=== PATIENT | male | born 1990 | race Caucasian/White ===

== ENCOUNTER 2020-01-23 20:14 | Emergency (ER) | payer OTHER ==
[~2020-01-23] VITALS: Ht 172.7 cm; Wt 86.4 kg
[2020-01-23] MEDS ORDERED: NALOXONE 2MG/2ML SYRINGE (J2310 PER 1MG) As Ordered ONE (20:29)
[2020-01-23] MEDS ORDERED: NALOXONE 2MG/2ML SYRINGE (J2310 PER 1MG) IV ONE (20:45)
[2020-01-23] MEDS ORDERED: NS 1,000 ML IV ONE (20:45)
[2020-01-23 21:15] LABS: BASO # 0.1 10^3/uL (0.0-0.2); BASO % 0.5 % (0.0-1.0); EOS # 0.2 10^3/uL (0.0-0.5); EOS % 2.4 % (0.0-3.0); HEMATOCRIT 42.1 % (42.0-52.0); HEMOGLOBIN 13.9 g/dl (13.5-17.5); LYMPH # 3.1 10^3/uL (1.5-5.0); LYMPH % 34.1 % (24.0-44.0); MEAN CORPUSCULAR HEMOGLOBIN 28.1 pg (27.0-33.0); MEAN CORPUSCULAR VOLUME 85.2 fl (80.0-96.0); MONO # 1.1 10^3/uL (0.0-0.8); MONO % 12.5 % (0.0-5.0); NEUTROPHILS # 4.6 10^3/uL (1.5-8.5); NEUTROPHILS % 50.3 % (36.0-66.0); PLATELET COUNT, AUTOMATED 309 10^3/uL (150-450); RED BLOOD COUNT 4.94 10^6/uL (4.30-6.10); WHITE BLOOD COUNT 9.1 10^3/uL (4.0-10.0)
[2020-01-23 21:48] LABS: ACETAMINOPHEN LEVEL < 2.0 UG/ML (10.0-30.0); ALBUMIN 3.9 GM/DL (3.2-5.2); ALT/SGPT 31 U/L (12-78); BILIRUBIN,DIRECT 0.1 MG/DL (0.0-0.2); BILIRUBIN,TOTAL 0.4 MG/DL (0.2-1.0); BLOOD UREA NITROGEN 15 MG/DL (7-18); CALCIUM LEVEL 8.8 MG/DL (8.5-10.1); CARBON DIOXIDE LEVEL 29 MEQ/L (21-32); CHLORIDE LEVEL 111 MEQ/L (98-107); CPK CREATINE PHOSPHOKINASE 633 U/L (39-308); CREATININE FOR GFR 1.03 MG/DL (0.70-1.30); ETHYL ALCOHOL (ETHANOL) < 0.003 % (0.000-0.010); GLOMERULAR FILTRATION RATE > 60.0 (>60); GLUCOSE, FASTING 79 MG/DL (70-100); POTASSIUM SERUM 4.2 MEQ/L (3.5-5.1); SALICYLATE LEVEL < 1.7 MG/DL (5.0-30.0); SODIUM LEVEL 143 MEQ/L (136-145); TOTAL PROTEIN 7.2 GM/DL (6.4-8.2)
--- NOTE | 2020-01-23 21:53 | REPVR ---
PROCEDURE INFORMATION: Exam: CT Head Without Contrast Exam date and time: 01/23/2020 9:16 PM Age: 29 years old Clinical indication: Other: Overdose; Additional info: Drug overdose TECHNIQUE: Imaging protocol: Computed tomography of the head without contrast. Radiation optimization: All CT scans at this facility use at least one of these dose optimization techniques: automated exposure control; mA and/or kV adjustment per patient size (includes targeted exams where dose is matched to clinical indication); or iterative reconstruction. COMPARISON: CT Head without contrast 12/09/2013 4:24 AM FINDINGS: Brain: Normal. No hemorrhage. Unremarkable white matter. No mass effect. Ventricles: Normal. No ventriculomegaly. Bones/joints: Unremarkable. No acute fracture. Sinuses: Minimal paranasal sinus disease. Mastoid air cells: Visualized mastoid air cells are well aerated. Soft tissues: Unremarkable. IMPRESSION: No acute intracranial abnormality. Electronically signed by: Kimo Blackwell On 01/23/2020 21:53:07 PM
[2020-01-23 23:52] LABS: AMPHETAMINES LEVEL URINE POSITIVE (NEGATIVE); BARBITURATES URINE NEGATIVE (NEGATIVE); BENZODIAZEPINES URINE POSITIVE (NEGATIVE); CANNABINOIDS URINE POSITIVE (NEGATIVE); COCAINE METABOLITE URINE POSITIVE (NEGATIVE); METHADONE URINE NEGATIVE (NEGATIVE); OPIATES URINE NEGATIVE (NEGATIVE); PHENCYCLIDINE URINE NEGATIVE (NEGATIVE)
[2020-01-24 03:28] VITALS: BP 136/88
--- NOTE | 2020-02-17 15:08 | ECGEPIP ---
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
== END 2020-01-24 03:29 | disposition home or self-care (01) ==
LOC: M ED 20:14
DX: F19.120 Other psychoactive substance abuse with intoxication, uncomplicated (principal)
CPT/HCPCS: 70450; 80048; 80076; 80307; 82550; 84443; 85025; 93005; 93041; 94760; 96361; 96374; 99285; G0480; J2310

== ENCOUNTER → 2021-02-05 | Outpatient (CLI) | payer OTHER ==
[2021-02-05 12:47] LABS: APPEARANCE, URINE CLEAR (CLEAR); BACTERIA, URINE AUTO NEGATIVE (NEGATIVE); BASO # 0.1 10^3/uL (0.0-0.2); BASO % 0.7 % (0.0-1.0); BILIRUBIN, URINE AUTO NEGATIVE (NEGATIVE); BLOOD, URINE BLOOD NEGATIVE (NEGATIVE); COLOR, URINE YELLOW (YELLOW); EOS # 0.1 10^3/uL (0.0-0.5); EOS % 1.5 % (0.0-3.0); GLUCOSE, URINE (UA) AUTO NEGATIVE (NEGATIVE); HEMATOCRIT 43.7 % (42.0-52.0); HEMOGLOBIN 14.4 g/dl (13.5-17.5); KETONE, URINE AUTO NEGATIVE (NEGATIVE); LEUKOCYTE ESTERASE, URINE AUTO NEGATIVE (NEGATIVE); LYMPH # 2.3 10^3/uL (1.5-5.0); LYMPH % 33.1 % (24.0-44.0); MEAN CORPUSCULAR HEMOGLOBIN 27.6 pg (27.0-33.0); MEAN CORPUSCULAR VOLUME 83.9 fl (80.0-96.0); MONO # 0.6 10^3/uL (0.0-0.8); MONO % 9.1 % (2.0-8.0); MUCUS, URINE SMALL (NEGATIVE); NEUTROPHILS # 3.8 10^3/uL (1.5-8.5); NEUTROPHILS % 55.3 % (36.0-66.0); NITRITE, URINE AUTO NEGATIVE (NEGATIVE); PLATELET COUNT, AUTOMATED 307 10^3/uL (150-450); PROTEIN, URINE AUTO NEGATIVE (NEGATIVE); RBC, URINE AUTO 0 /HPF (0-3); RED BLOOD COUNT 5.21 10^6/uL (4.30-6.10); SPECIFIC GRAVITY URINE AUTO 1.019 (1.002-1.035); SQUAMOUS EPITHELIAL CELL UR AU 0 /HPF (0-6); UROBILINOGEN, URINE AUTO 0.2 mg/dL (0.0-2.0); WBC, URINE AUTO 0 /HPF (0-3); WHITE BLOOD COUNT 6.8 10^3/uL (4.0-10.0)
[2021-02-05 13:20] LABS: ALBUMIN 3.7 GM/DL (3.2-5.2); ALT/SGPT 36 U/L (12-78); BILIRUBIN,TOTAL 0.3 MG/DL (0.2-1.0); BLOOD UREA NITROGEN 11 MG/DL (7-18); CALCIUM LEVEL 8.9 MG/DL (8.5-10.1); CARBON DIOXIDE LEVEL 29 MEQ/L (21-32); CHLORIDE LEVEL 106 MEQ/L (98-107); CREATININE FOR GFR 1.41 MG/DL (0.70-1.30); GLOMERULAR FILTRATION RATE > 60.0 (>60); GLUCOSE, FASTING 88 MG/DL (70-100); POTASSIUM SERUM 4.6 MEQ/L (3.5-5.1); SODIUM LEVEL 140 MEQ/L (136-145)
[2021-02-05 14:47] LABS: HEPATITIS B SURFACE ANTIGEN NEGATIVE (NEGATIVE)
[2021-02-05 15:14] LABS: HEPATITIS B CORE ANTIBODY IGM NEGATIVE (NEGATIVE); HEPATITIS C VIRUS ABY INDEX < 0.0 INDEX (<0.8)
[2021-02-05 15:17] LABS: HEPATITIS A ANTIBODY IGM NEGATIVE (NEGATIVE)
== END ==
LOC: M LAB 11:31
PROVIDERS: ATTEND Internal Medicine Cardiovascular Disease
DX: Z02.2 Encounter for examination for admission to residential institution (principal)

== ENCOUNTER 2022-08-26 14:26 | Inpatient (IN) | payer MEDICAID, OTHER ==
[~2022-08-26] VITALS: Ht 175.3 cm; Wt 64.3 kg
[2022-08-26 17:02] LABS: BARBITURATES URINE NEGATIVE (NEGATIVE); COCAINE METABOLITE URINE NEGATIVE (NEGATIVE); METHADONE URINE NEGATIVE (NEGATIVE)
[2022-08-26 17:03] LABS: CANNABINOIDS URINE NEGATIVE (NEGATIVE); OPIATES URINE NEGATIVE (NEGATIVE); PHENCYCLIDINE URINE NEGATIVE (NEGATIVE)
[2022-08-26 17:25] LABS: AMPHETAMINES LEVEL URINE POSITIVE (NEGATIVE); BENZODIAZEPINES URINE POSITIVE (NEGATIVE)
[2022-08-26 17:30] LABS: HEMATOCRIT 40.7 % (42.0-52.0); HEMOGLOBIN 13.6 g/dl (13.5-17.5); MEAN CORPUSCULAR HGB CONC 33.4 g/dl (32.0-36.5); MEAN CORPUSCULAR VOLUME 86.8 fl (80.0-96.0); PLATELET COUNT, AUTOMATED 316 10^3/uL (150-450); RED BLOOD COUNT 4.69 10^6/uL (4.30-6.10); WHITE BLOOD COUNT 8.4 10^3/uL (4.0-10.0)
[2022-08-26] MEDS ORDERED: GABA800T4 PO (17:34)
[2022-08-26] MEDS ORDERED: CLON0.5T2 PO (17:34)
[2022-08-26 17:56] LABS: ETHYL ALCOHOL (ETHANOL) 0.006 % (0.000-0.010)
[2022-08-26 17:57] LABS: SALICYLATE LEVEL < 3.0 MG/DL (<30)
[2022-08-26 17:58] LABS: ACETAMINOPHEN LEVEL < 2.0 UG/ML (10.0-20.0); ALBUMIN 3.8 G/DL (3.2-5.2); ALKALINE PHOSPHATASE 74 U/L (46-116); ALT/SGPT 20 U/L (7.0-40); AST/SGOT 19 U/L (<34); BILIRUBIN,DIRECT 0.1 MG/DL (<0.4); BILIRUBIN,TOTAL 0.3 MG/DL (0.3-1.2); BLOOD UREA NITROGEN 14 MG/DL (9-23); CALCIUM LEVEL 8.5 MG/DL (8.5-10.1); CARBON DIOXIDE LEVEL 29 MMOL/L (20-31); CHLORIDE LEVEL 105 MMOL/L (98-107); CREATININE FOR GFR 0.78 MG/DL (0.70-1.30); GLOMERULAR FILTRATION RATE > 60.0 (>60); GLUCOSE, FASTING 113 MG/DL (60-100); POTASSIUM SERUM 4.4 MMOL/L (3.5-5.1); SODIUM LEVEL 138 MMOL/L (136-145); TOTAL PROTEIN 6.5 G/DL (5.7-8.2)
[2022-08-26 18:00] LABS: THYROID STIMULATING HORMONE 0.283 uIU/ML (0.55-4.78)
[2022-08-26] MEDS ORDERED: BUPR1FIL SL (20:55)
[2022-08-26] MEDS ORDERED: HOME MED LIST COMPLETE! XX SCH (21:00)
[2022-08-26] MEDS ORDERED: hydrOXYzine 50 MG TAB PO ONE (21:40)
[2022-08-27] MEDS ORDERED: cloNIDine 0.1MG TABLET PO PRN
[2022-08-27] MEDS ORDERED: MOM 30ML SUSPENSION UDC PO PRN
[2022-08-27] MEDS ORDERED: MAALOX 30 ML SUSP *UDC PO PRN
[2022-08-27 01:37] VITALS: BP 114/76
[2022-08-27] MEDS: OLANZapine ORAL DISINTEGRATING TAB 5MG PO SCH ×3 (02:47→22:05)
[2022-08-27] MEDS: GABAPENTIN 400MG CAP PO SCH ×3 (09:43→22:04)
[2022-08-27 17:48] VITALS: BP 123/71
[2022-08-28 06:02] VITALS: BP 117/65
[2022-08-28] MEDS: OLANZapine ORAL DISINTEGRATING TAB 5MG PO SCH ×2 (09:06→21:22)
[2022-08-28] MEDS: GABAPENTIN 400MG CAP PO SCH ×3 (09:06→21:22)
[2022-08-28 17:52] VITALS: BP 118/83
[2022-08-29 06:08] VITALS: BP 121/69
[2022-08-29] MEDS: ACETAMINOPHEN TAB 650MG DOSE (2X325MG) PO PRN ×2 (10:06→21:58)
[2022-08-29] MEDS: OLANZapine ORAL DISINTEGRATING TAB 5MG PO SCH ×2 (10:06→21:58)
[2022-08-29] MEDS: GABAPENTIN 400MG CAP PO SCH ×3 (10:07→21:58)
[2022-08-29] MEDS: ESCITALOPRAM OXALATE 5MG TABLET (LEXAPRO) PO SCH (14:24)
[2022-08-29 18:47] VITALS: BP 105/70
[2022-08-29 18:50] VITALS: BP 138/80
[2022-08-30 06:48] VITALS: BP 115/69
[2022-08-30] MEDS: ESCITALOPRAM OXALATE 5MG TABLET (LEXAPRO) PO SCH (08:38)
[2022-08-30] MEDS: GABAPENTIN 400MG CAP PO SCH ×3 (08:38→20:15)
[2022-08-30 16:25] VITALS: BP 130/79
[2022-08-30] MEDS: OLANZapine 10 MG TAB PO SCH (20:15)
[2022-08-30] MEDS: ACETAMINOPHEN TAB 650MG DOSE (2X325MG) PO PRN (20:18)
[2022-08-31 06:40] VITALS: BP 137/76
[2022-08-31] MEDS: GABAPENTIN 400MG CAP PO SCH ×3 (08:54→21:52)
[2022-08-31] MEDS: ESCITALOPRAM OXALATE 10 MG TAB (LEXAPRO) PO SCH (08:54)
[2022-08-31] MEDS: ACETAMINOPHEN TAB 650MG DOSE (2X325MG) PO PRN ×2 (08:55→15:37)
[2022-08-31 16:37] VITALS: BP 132/77
[2022-08-31] MEDS: OLANZapine 10 MG TAB PO SCH (21:52)
[2022-09-01 06:17] VITALS: BP 123/81
[2022-09-01] MEDS: ESCITALOPRAM OXALATE 10 MG TAB (LEXAPRO) PO SCH (08:45)
[2022-09-01] MEDS: GABAPENTIN 400MG CAP PO SCH ×3 (08:45→21:50)
[2022-09-01] MEDS: clonazePAM 0.5 MG TAB PO PRN (12:34)
[2022-09-01] MEDS: ACETAMINOPHEN TAB 650MG DOSE (2X325MG) PO PRN (16:24)
[2022-09-01 17:47] VITALS: BP 130/70
[2022-09-01] MEDS: OLANZapine 10 MG TAB PO SCH (21:50)
[2022-09-02 06:21] VITALS: BP 135/79
[2022-09-02] MEDS: ESCITALOPRAM OXALATE 10 MG TAB (LEXAPRO) PO SCH (09:02)
[2022-09-02] MEDS: clonazePAM 0.5 MG TAB PO PRN ×2 (09:02→15:04)
[2022-09-02] MEDS: GABAPENTIN 400MG CAP PO SCH ×3 (09:02→20:57)
[2022-09-02] MEDS: ACETAMINOPHEN TAB 650MG DOSE (2X325MG) PO PRN (15:05)
[2022-09-02 16:41] VITALS: BP 124/66
[2022-09-02] MEDS: OLANZapine 10 MG TAB PO SCH (20:57)
[2022-09-03 06:29] VITALS: BP 133/77
[2022-09-03] MEDS: GABAPENTIN 400MG CAP PO SCH ×3 (09:00→21:43)
[2022-09-03] MEDS: ESCITALOPRAM OXALATE 10 MG TAB (LEXAPRO) PO SCH (09:00)
[2022-09-03] MEDS: clonazePAM 0.5 MG TAB PO PRN ×2 (09:01→14:41)
[2022-09-03 16:34] VITALS: BP 140/85
[2022-09-03] MEDS: OLANZapine 10 MG TAB PO SCH (21:43)
[2022-09-03] MEDS: traZODone 50 MG TAB PO PRN (21:43)
[2022-09-04 06:39] VITALS: BP 133/62
[2022-09-04] MEDS: ACETAMINOPHEN TAB 650MG DOSE (2X325MG) PO PRN (08:26)
[2022-09-04] MEDS: ESCITALOPRAM OXALATE 10 MG TAB (LEXAPRO) PO SCH (08:26)
[2022-09-04] MEDS: GABAPENTIN 400MG CAP PO SCH ×3 (08:26→21:55)
[2022-09-04] MEDS: clonazePAM 0.5 MG TAB PO PRN ×2 (08:27→15:31)
[2022-09-04 16:49] VITALS: BP 138/74
[2022-09-04] MEDS: OLANZapine 10 MG TAB PO SCH (21:53)
[2022-09-04] MEDS: traZODone 50 MG TAB PO PRN (21:53)
[2022-09-05 06:33] VITALS: BP 124/73
[2022-09-05] MEDS: GABAPENTIN 400MG CAP PO SCH ×3 (08:39→21:25)
[2022-09-05] MEDS: ESCITALOPRAM OXALATE 10 MG TAB (LEXAPRO) PO SCH (08:40)
[2022-09-05] MEDS: clonazePAM 0.5 MG TAB PO PRN ×2 (08:40→15:38)
[2022-09-05 18:07] VITALS: BP 139/86
[2022-09-05] MEDS: OLANZapine 10 MG TAB PO SCH (21:25)
[2022-09-05] MEDS: traZODone 50 MG TAB PO PRN (21:25)
[2022-09-06 05:44] VITALS: BP 133/73
[2022-09-06] MEDS: ESCITALOPRAM OXALATE 10 MG TAB (LEXAPRO) PO SCH (08:13)
[2022-09-06] MEDS: GABAPENTIN 400MG CAP PO SCH (08:13)
[2022-09-06] MEDS ORDERED: LEXA1TAB PO (09:08)
[2022-09-06] MEDS ORDERED: OLAN1TAB20 PO (09:08)
[2022-09-06] MEDS ORDERED: TRAZ-252 PO (09:08)
[2022-09-06] MEDS: clonazePAM 0.5 MG TAB PO PRN (09:25)
== END 2022-09-06 11:03 | disposition home or self-care (01) | DRG 751 ==
LOC: M ED 14:26 → M ED INP 08-27 → M PSY 08-27 01:32
PROVIDERS: ADMIT Student in an Organized Health Care Education/Training Program; ATTEND Psychiatry & Neurology Psychiatry
DX: F29 Unspecified psychosis not due to a substance or known physiological condition (principal); F11.20 Opioid dependence, uncomplicated; R45.851 Suicidal ideations; Z91.198 Patient's noncompliance with other medical treatment and regimen for other reason; R44.0 Auditory hallucinations; F15.14 Other stimulant abuse with stimulant-induced mood disorder; Z79.899 Other long term (current) drug therapy; Z56.0 Unemployment, unspecified

== ENCOUNTER 2022-10-02 14:48 | Inpatient (IN) | payer MEDICAID ==
[~2022-10-02] VITALS: Ht 266.7 cm; Wt 62.1 kg
[~2022-10-02 14:48] MED LIST: BUPR1FIL SL; CLON0.5T2 PO; GABA800T4 PO; LEXA1TAB PO; OLAN1TAB20 PO; TRAZ-252 PO
[2022-10-02 15:51] LABS: BASO # 0.1 10^3/uL (0.0-0.2); BASO % 0.4 % (0.0-1.0); HEMATOCRIT 38.1 % (42.0-52.0); LYMPH # 1.8 10^3/uL (1.5-5.0); LYMPH % 11.3 % (24.0-44.0); MEAN CORPUSCULAR HEMOGLOBIN 28.4 pg (27.0-33.0); MEAN CORPUSCULAR HGB CONC 34.1 g/dl (32.0-36.5); MEAN CORPUSCULAR VOLUME 83.2 fl (80.0-96.0); MONO # 1.4 10^3/uL (0.0-0.8); MONO % 8.5 % (2.0-8.0); NEUTROPHILS # 12.5 10^3/uL (1.5-8.5); NEUTROPHILS % 79.4 % (36.0-66.0); PLATELET COUNT, AUTOMATED 386 10^3/uL (150-450); RED BLOOD COUNT 4.58 10^6/uL (4.30-6.10); WHITE BLOOD COUNT 15.8 10^3/uL (4.0-10.0)
[2022-10-02] MEDS ORDERED: NS 1,000 ML IV ONE (16:00)
[2022-10-02 16:16] LABS: ALBUMIN 2.9 G/DL (3.2-5.2); ALKALINE PHOSPHATASE 109 U/L (46-116); ALT/SGPT 118 U/L (7.0-40); AST/SGOT 123 U/L (<34); BILIRUBIN,TOTAL 0.5 MG/DL (0.3-1.2); BLOOD UREA NITROGEN 17 MG/DL (9-23); CALCIUM LEVEL 8.1 MG/DL (8.5-10.1); CARBON DIOXIDE LEVEL 29 MMOL/L (20-31); CHLORIDE LEVEL 103 MMOL/L (98-107); ERYTHROCYTE SEDIMENTATION RATE 55 mm/hr (0-15); GLOMERULAR FILTRATION RATE > 60.0 (>60); GLUCOSE, FASTING 137 MG/DL (60-100); SODIUM LEVEL 137 MMOL/L (136-145); TOTAL PROTEIN 6.5 G/DL (5.7-8.2)
[2022-10-02 16:26] LABS: RSV AMPLIFICATION NEGATIVE (NEGATIVE)
[2022-10-02 16:44] LABS: CPK CREATINE PHOSPHOKINASE 1769 U/L (46-171)
[2022-10-02] MEDS ORDERED: ACETAMINOPHEN 500 MG TAB PO ONE (16:45)
[2022-10-02] MEDS ORDERED: MOM 30ML SUSPENSION UDC PO PRN (17:15)
[2022-10-02] MEDS ORDERED: LEXA1TAB PO (18:13)
[2022-10-02] MEDS: cefTRIAXone SOD 1 GM in D5W MINI-BAG PLUS 50 ML IV SCH (18:13)
[2022-10-02] MEDS ORDERED: BUPR1FIL3 SL (18:13)
[2022-10-02] MEDS ORDERED: OLAN1TAB16 PO (18:13)
[2022-10-02] MEDS ORDERED: BUPR1FIL SL (18:13)
[2022-10-02] MEDS: NS 1,000 ML IV SCH (18:14)
[2022-10-02] MEDS ORDERED: LORazepam 2 MG TAB PO PRN (18:15)
[2022-10-02] MEDS ORDERED: HOME MED LIST COMPLETE! XX SCH (18:15)
[2022-10-02 18:31] LABS: PHOSPHORUS LEVEL 2.9 MG/DL (2.5-4.9)
[2022-10-02 18:57] LABS: MAGNESIUM LEVEL 1.9 MG/DL (1.8-2.4)
[2022-10-02 19:02] LABS: INR 1.04; PROTHROMBIN TIME 13.8 SECONDS (12.5-14.5)
[2022-10-02 19:20] VITALS: BP 110/62
[2022-10-02] MEDS: BUPRENORPHINE/NALOXONE 8-2MG SUBLINGUAL TABLET(SUBOXONE) SL SCH (20:28)
[2022-10-02] MEDS: GABAPENTIN 400MG CAP PO SCH (20:29)
[2022-10-02] MEDS: THIAMINE 100 MG TAB PO SCH (20:29)
[2022-10-02] MEDS: DOCUSATE SODIUM 100MG CAPSULE PO SCH (20:29)
[2022-10-02] MEDS: OLANZapine 5 MG TAB PO SCH (20:30)
[2022-10-02] MEDS: ENOXAPARIN 40MG/0.4ML SYRINGE (J1650 PER 10MG) SC SCH (20:37)
[2022-10-02] MEDS: MULTIVITAMINS/MINERALS THERAP 1 TAB PO SCH (20:52)
[2022-10-02] MEDS: FOLIC ACID 1MG TAB PO SCH (20:52)
[2022-10-03] MEDS: NS 1,000 ML IV SCH ×3 (00:19→10:03)
[2022-10-03] MEDS: clonazePAM 0.5 MG TAB PO PRN (05:17)
[2022-10-03] MEDS: ACETAMINOPHEN TAB 650MG DOSE (2X325MG) PO PRN ×3 (05:23→15:50)
[2022-10-03 06:00] VITALS: BP 127/88
[2022-10-03 06:11] VITALS: BP_DIAS 127
[2022-10-03 06:58] LABS: BASO # 0.1 10^3/uL (0.0-0.2); BASO % 0.5 % (0.0-1.0); EOS # 0.1 10^3/uL (0.0-0.5); EOS % 0.4 % (0.0-3.0); HEMATOCRIT 37.3 % (42.0-52.0); HEMOGLOBIN 12.1 g/dl (13.5-17.5); LYMPH # 1.5 10^3/uL (1.5-5.0); LYMPH % 12.1 % (24.0-44.0); MEAN CORPUSCULAR HEMOGLOBIN 28.6 pg (27.0-33.0); MEAN CORPUSCULAR HGB CONC 32.4 g/dl (32.0-36.5); MEAN CORPUSCULAR VOLUME 88.2 fl (80.0-96.0); MONO # 1.1 10^3/uL (0.0-0.8); NEUTROPHILS # 9.4 10^3/uL (1.5-8.5); NEUTROPHILS % 77.7 % (36.0-66.0); PLATELET COUNT, AUTOMATED 327 10^3/uL (150-450); RED BLOOD COUNT 4.23 10^6/uL (4.30-6.10)
[2022-10-03 07:38] LABS: ALBUMIN 2.2 G/DL (3.2-5.2); ALKALINE PHOSPHATASE 97 U/L (46-116); ALT/SGPT 85 U/L (7.0-40); AST/SGOT 74 U/L (<34); BILIRUBIN,DIRECT 0.1 MG/DL (<0.4); BILIRUBIN,TOTAL 0.3 MG/DL (0.3-1.2); BLOOD UREA NITROGEN 11 MG/DL (9-23); CALCIUM LEVEL 7.4 MG/DL (8.5-10.1); CARBON DIOXIDE LEVEL 26 MMOL/L (20-31); CHLORIDE LEVEL 107 MMOL/L (98-107); CREATININE FOR GFR 0.67 MG/DL (0.70-1.30); GLOMERULAR FILTRATION RATE > 60.0 (>60); GLUCOSE, FASTING 81 MG/DL (60-100); MAGNESIUM LEVEL 1.8 MG/DL (1.8-2.4); PHOSPHORUS LEVEL 2.9 MG/DL (2.5-4.9); SODIUM LEVEL 140 MMOL/L (136-145); TOTAL PROTEIN 5.4 G/DL (5.7-8.2)
[2022-10-03] MEDS: BUPRENORPHINE/NALOXONE 8-2MG SUBLINGUAL TABLET(SUBOXONE) SL SCH ×2 (08:49→20:41)
[2022-10-03] MEDS: MULTIVITAMINS/MINERALS THERAP 1 TAB PO SCH (08:49)
[2022-10-03] MEDS: FOLIC ACID 1MG TAB PO SCH (08:50)
[2022-10-03] MEDS: ESCITALOPRAM OXALATE 10 MG TAB (LEXAPRO) PO SCH (08:50)
[2022-10-03] MEDS: GABAPENTIN 400MG CAP PO SCH ×3 (08:50→20:40)
[2022-10-03] MEDS: DOCUSATE SODIUM 100MG CAPSULE PO SCH ×2 (08:50→20:40)
[2022-10-03] MEDS: THIAMINE 100 MG TAB PO SCH ×2 (08:50→20:40)
[2022-10-03 14:00] VITALS: BP 131/84
[2022-10-03] MEDS: cefTRIAXone SOD 1 GM in D5W MINI-BAG PLUS 50 ML IV SCH (18:14)
[2022-10-03 20:00] VITALS: BP 133/78
[2022-10-03] MEDS: ENOXAPARIN 40MG/0.4ML SYRINGE (J1650 PER 10MG) SC SCH (20:40)
[2022-10-03] MEDS: OLANZapine 5 MG TAB PO SCH (20:40)
[2022-10-04] MEDS: ACETAMINOPHEN TAB 650MG DOSE (2X325MG) PO PRN (05:21)
[2022-10-04 06:00] VITALS: BP 136/80
[2022-10-04 06:14] LABS: BASO # 0.1 10^3/uL (0.0-0.2); BASO % 0.5 % (0.0-1.0); EOS # 0.2 10^3/uL (0.0-0.5); EOS % 1.2 % (0.0-3.0); HEMATOCRIT 43.5 % (42.0-52.0); LYMPH # 2.8 10^3/uL (1.5-5.0); LYMPH % 16.2 % (24.0-44.0); MEAN CORPUSCULAR HEMOGLOBIN 28.1 pg (27.0-33.0); MEAN CORPUSCULAR HGB CONC 32.4 g/dl (32.0-36.5); MEAN CORPUSCULAR VOLUME 86.7 fl (80.0-96.0); MONO # 1.4 10^3/uL (0.0-0.8); MONO % 7.8 % (2.0-8.0); NEUTROPHILS # 12.7 10^3/uL (1.5-8.5); NEUTROPHILS % 73.8 % (36.0-66.0); RED BLOOD COUNT 5.02 10^6/uL (4.30-6.10); WHITE BLOOD COUNT 17.2 10^3/uL (4.0-10.0)
[2022-10-04 06:15] LABS: HEMOGLOBIN 14.1 g/dl (13.5-17.5)
[2022-10-04 06:16] LABS: PLATELET COUNT, AUTOMATED 431 10^3/uL (150-450)
[2022-10-04 06:26] LABS: ALBUMIN 2.4 G/DL (3.2-5.2); ALKALINE PHOSPHATASE 120 U/L (46-116); ALT/SGPT 81 U/L (7.0-40); AST/SGOT 55 U/L (<34); BILIRUBIN,DIRECT < 0.1 MG/DL (<0.4); BILIRUBIN,TOTAL 0.2 MG/DL (0.3-1.2); BLOOD UREA NITROGEN 9 MG/DL (9-23); CALCIUM LEVEL 7.7 MG/DL (8.5-10.1); CARBON DIOXIDE LEVEL 30 MMOL/L (20-31); CHLORIDE LEVEL 101 MMOL/L (98-107); CREATININE FOR GFR 0.67 MG/DL (0.70-1.30); GLOMERULAR FILTRATION RATE > 60.0 (>60); GLUCOSE, FASTING 92 MG/DL (60-100); MAGNESIUM LEVEL 1.7 MG/DL (1.8-2.4); PHOSPHORUS LEVEL 3.4 MG/DL (2.5-4.9); POTASSIUM SERUM 4.3 MMOL/L (3.5-5.1); SODIUM LEVEL 135 MMOL/L (136-145); TOTAL PROTEIN 6.1 G/DL (5.7-8.2)
[2022-10-04 06:40] LABS: ERYTHROCYTE SEDIMENTATION RATE 50 mm/hr (0-15)
[2022-10-04] MEDS: ESCITALOPRAM OXALATE 10 MG TAB (LEXAPRO) PO SCH (09:44)
[2022-10-04] MEDS: MULTIVITAMINS/MINERALS THERAP 1 TAB PO SCH (09:44)
[2022-10-04] MEDS: GABAPENTIN 400MG CAP PO SCH ×3 (09:44→20:17)
[2022-10-04] MEDS: DOCUSATE SODIUM 100MG CAPSULE PO SCH ×2 (09:44→20:17)
[2022-10-04] MEDS: THIAMINE 100 MG TAB PO SCH ×2 (09:44→20:52)
[2022-10-04] MEDS: FOLIC ACID 1MG TAB PO SCH (09:44)
[2022-10-04] MEDS: BUPRENORPHINE/NALOXONE 8-2MG SUBLINGUAL TABLET(SUBOXONE) SL SCH ×2 (09:45→20:18)
[2022-10-04] MEDS: clonazePAM 0.5 MG TAB PO PRN (09:53)
[2022-10-04 11:16] LABS: HEPATITIS B SURFACE ANTIGEN NEGATIVE (NEGATIVE)
[2022-10-04 11:29] LABS: HIV 1&2 SCREEN CENTAUR NEGATIVE (NEGATIVE)
[2022-10-04 11:37] LABS: HEPATITIS C VIRUS ABY INDEX 0.1 INDEX (<0.8)
[2022-10-04 11:38] LABS: HEPATITIS B CORE ANTIBODY IGM NEGATIVE (NEGATIVE)
[2022-10-04] MEDS ORDERED: DOXYCYCLINE HYCLATE 100 MG in D5W MINI-BAG PLUS 100 ML IV SCH (12:00)
[2022-10-04 14:00] VITALS: BP 118/69
[2022-10-04] MEDS: MAG SULF 1GM/100ML (MAG RUN) 1 GM in IV 1 EA IV SCH ×2 (14:33→15:53)
[2022-10-04] MEDS: cefTRIAXone SOD 1 GM in D5W MINI-BAG PLUS 50 ML IV SCH (17:10)
[2022-10-04 20:00] VITALS: BP 125/72
[2022-10-04] MEDS: OLANZapine 5 MG TAB PO SCH (20:17)
[2022-10-04] MEDS: DOXYCYCLINE HYCLATE 100MG TABLET PO SCH (20:17)
[2022-10-04] MEDS: ENOXAPARIN 40MG/0.4ML SYRINGE (J1650 PER 10MG) SC SCH (20:17)
[2022-10-05 04:50] VITALS: BP 127/75
[2022-10-05 05:59] LABS: BASO # 0.1 10^3/uL (0.0-0.2); BASO % 0.6 % (0.0-1.0); EOS # 0.3 10^3/uL (0.0-0.5); EOS % 2.2 % (0.0-3.0); HEMATOCRIT 40.8 % (42.0-52.0); HEMOGLOBIN 13.2 g/dl (13.5-17.5); LYMPH # 2.6 10^3/uL (1.5-5.0); LYMPH % 20.5 % (24.0-44.0); MEAN CORPUSCULAR HEMOGLOBIN 28.1 pg (27.0-33.0); MEAN CORPUSCULAR HGB CONC 32.4 g/dl (32.0-36.5); MEAN CORPUSCULAR VOLUME 86.8 fl (80.0-96.0); MONO # 1.1 10^3/uL (0.0-0.8); MONO % 8.9 % (2.0-8.0); NEUTROPHILS # 8.7 10^3/uL (1.5-8.5); NEUTROPHILS % 67.3 % (36.0-66.0); PLATELET COUNT, AUTOMATED 447 10^3/uL (150-450); WHITE BLOOD COUNT 12.9 10^3/uL (4.0-10.0)
[2022-10-05 06:30] LABS: ALBUMIN 2.2 G/DL (3.2-5.2); ALKALINE PHOSPHATASE 118 U/L (46-116); ALT/SGPT 58 U/L (7.0-40); AST/SGOT 38 U/L (<34); BILIRUBIN,DIRECT < 0.1 MG/DL (<0.4); BILIRUBIN,TOTAL < 0.2 MG/DL (0.3-1.2); BLOOD UREA NITROGEN 13 MG/DL (9-23); CALCIUM LEVEL 7.6 MG/DL (8.5-10.1); CARBON DIOXIDE LEVEL 31 MMOL/L (20-31); CHLORIDE LEVEL 103 MMOL/L (98-107); CREATININE FOR GFR 0.65 MG/DL (0.70-1.30); GLOMERULAR FILTRATION RATE > 60.0 (>60); GLUCOSE, FASTING 94 MG/DL (60-100); MAGNESIUM LEVEL 1.8 MG/DL (1.8-2.4); PHOSPHORUS LEVEL 3.5 MG/DL (2.5-4.9); POTASSIUM SERUM 4.6 MMOL/L (3.5-5.1); SODIUM LEVEL 138 MMOL/L (136-145); TOTAL PROTEIN 5.8 G/DL (5.7-8.2)
[2022-10-05] MEDS: FOLIC ACID 1MG TAB PO SCH (08:25)
[2022-10-05] MEDS: MULTIVITAMINS/MINERALS THERAP 1 TAB PO SCH (08:25)
[2022-10-05] MEDS: DOCUSATE SODIUM 100MG CAPSULE PO SCH (08:25)
[2022-10-05] MEDS: DOXYCYCLINE HYCLATE 100MG TABLET PO SCH (08:25)
[2022-10-05] MEDS: ESCITALOPRAM OXALATE 10 MG TAB (LEXAPRO) PO SCH (08:25)
[2022-10-05] MEDS: GABAPENTIN 400MG CAP PO SCH (08:25)
[2022-10-05] MEDS: BUPRENORPHINE/NALOXONE 8-2MG SUBLINGUAL TABLET(SUBOXONE) SL SCH (08:25)
[2022-10-05] MEDS: THIAMINE 100 MG TAB PO SCH (08:25)
[2022-10-05 09:12] LABS: HEPATITIS A IgG TOTAL Positive (Negative); HEPATITIS B CORE ANTIBODY IGG Negative (Negative)
[2022-10-05] MEDS ORDERED: ELIQ5TAB PO ×2 (11:05→11:15)
[2022-10-05 11:15] VITALS: BP 129/85
[2022-10-05] MEDS ORDERED: VITMTA PO (11:15)
[2022-10-05] MEDS ORDERED: THIA100TA PO (11:15)
[2022-10-05] MEDS ORDERED: LEVO1TAB40 PO (11:15)
[2022-10-05] MEDS ORDERED: FOLI1TAB11 PO (11:15)
[2022-10-07 14:09] LABS: BODY FLUID CULTURE Not indicated. (.); LEGIONELLA ANTIGEN URINE Negative (Negative); ORGANISM ID Not indicated. (.); SPECIMEN SOURCE Urine (.); URINE STREP PNEUMONIAE ANTIGEN Negative (Negative)
== END 2022-10-05 13:31 | disposition home or self-care (01) | DRG 380 ==
LOC: M ED 14:48 → M ED INP 17:12 → M MSPAV 19:20
PROVIDERS: ADMIT Student in an Organized Health Care Education/Training Program; ATTEND Internal Medicine
PROC: B246ZZZ Ultrasonography of Right and Left Heart (ICD-10-PCS; 2022-10-04)
PROC: 0JBC0ZZ Excision of Pelvic Region Subcutaneous Tissue and Fascia, Open Approach (ICD-10-PCS; principal; 2022-10-05)
DX: L89.212 Pressure ulcer of right hip, stage 2 (principal); J18.9 Pneumonia, unspecified organism; J90 Pleural effusion, not elsewhere classified; E46 Unspecified protein-calorie malnutrition; I82.621 Acute embolism and thrombosis of deep veins of right upper extremity; M62.82 Rhabdomyolysis; F20.9 Schizophrenia, unspecified; L89.892 Pressure ulcer of other site, stage 2; R00.0 Tachycardia, unspecified; F15.10 Other stimulant abuse, uncomplicated; F43.10 Post-traumatic stress disorder, unspecified; F41.9 Anxiety disorder, unspecified; F32.A Depression, unspecified; L03.113 Cellulitis of right upper limb; L03.115 Cellulitis of right lower limb; R63.4 Abnormal weight loss; R74.01 Elevation of levels of liver transaminase levels; Z79.899 Other long term (current) drug therapy